=== PATIENT | male | born 1975 | race Hispanic/Latino ===

== ENCOUNTER 2019-12-28 13:13 | Emergency (ER) | payer SELFPAY ==
[2019-12-28 13:38] LABS: Absolute Lymphocytes (CBC) 0.5 K/uL (0.7-4.9); Basophils % 0.7 % (0-1.3); Hematocrit 41.1 % (39.6-49.0); Lymphocytes % 6.5 % (15.3-44.8); MPV 7.7 fL (7.6-11.3); RBC Red Blood Cell Count 4.62 M/uL (4.33-5.43)
[2019-12-28 13:54] LABS: Protime INR 0.9
[2019-12-28 14:00] LABS: ALT/SGPT 27 U/L (12-78); AST/SGOT 21 U/L (15-37); Albumin 3.9 g/dL (3.4-5.0); Alkaline Phosphatase 61 U/L (45-117); BUN Blood Urea Nitrogen 9 mg/dL (7-18); Bicarbonate 25 mmol/L (21-32); Bilirubin Direct < 0.1 mg/dL (0-0.2); Bilirubin Total 0.2 mg/dL (0.2-1.0); Glucose Level 117 mg/dL (74-106); Protein, Total 7.6 g/dL (6.4-8.2); Sodium Level 140 mmol/L (136-145)
[2019-12-28 14:48] LABS: Barbiturates NEGATIVE (NEGATIVE); Benzodiazepines NEGATIVE (NEGATIVE); Cocaine POSITIVE (NEGATIVE); METHAMPHETAM NEGATIVE (NEGATIVE); Methadone NEGATIVE (NEGATIVE); Opiates NEGATIVE (NEGATIVE); Phencyclidine NEGATIVE (NEGATIVE); THC Cannibis POSITIVE (NEGATIVE)
--- NOTE | 2019-12-28 15:37 | ER ---
Nurse's Notes [facility] Name: Marco Lott Age: 44 yrs Sex: Male : 1975 Arrival Date: 12/28/2019 Time: 13:15 Bed 8 Private MD: Diagnosis: Epilepsy and recurrent seizures;Cocaine abuse Presentation: 12/27 13:16 Chief complaint: EMS states: WITNESSED SEIZURE. Coronavirus screen: Proceed with normal bp triage. Ebola Screen: No symptoms or risks identified at this time. Initial Sepsis Screen: Does the patient meet any 2 criteria? No. Patient's initial sepsis screen is negative. Does the patient have a suspected source of infection? No. Patient's initial sepsis screen is negative. Risk Assessment: Do you want to hurt yourself or someone else? Patient reports no desire to harm self or others. Onset of symptoms is unknown. Care prior to arrival: IV initiated. 20 GA, in the right wrist. 13:16 Method Of Arrival: EMS: [facility] bp 13:16 Acuity: ADARSH 3 bp Triage Assessment: 13:17 General: Appears in no apparent distress. comfortable, Behavior is cooperative, bp appropriate for age, anxious. Pain: Denies pain. EENT: No deficits noted. Neuro: Level of Consciousness is awake, alert, obeys commands, Oriented to person, place, time, situation, Appropriate for age. Cardiovascular: No deficits noted. Respiratory: No deficits noted. GI: No signs and/or symptoms were reported involving the gastrointestinal system. : No signs and/or symptoms were reported regarding the genitourinary system. Derm: No deficits noted. Musculoskeletal: No deficits noted. Historical: - Allergies: 13:17 No Known Allergies; bp - Home Meds: 13:17 None [Active]; bp - PMHx: 13:17 Seizures; Hypertension; bp - Immunization history:: Adult Immunizations unknown. - Social history:: Smoking status: unknown. Screenin:19 Abuse screen: Denies threats or abuse. Denies injuries from another. Nutritional bp screening: No deficits noted. Tuberculosis screening: No symptoms or risk factors identified. Fall Risk None identified. Assessment: 13:17 General: SEE TRIAGE NOTE. bp 16:55 Reassessment: Patient appears in no apparent distress at this time. Patient and/or rb1 family updated on plan of care and expected duration. Pain level reassessed. Patient is alert, oriented x 3, equal unlabored respirations, skin warm/dry/pink. Vital Signs: 13:16 BP 140 / 89; Pulse 77; Resp 17; Temp 98; Pulse Ox 100% ; bp 14:15 BP 148 / 87; Pulse 77; Resp 14; Pulse Ox 100% ; rb1 16:40 BP 129 / 79; Pulse 79; Resp 14; Pulse Ox 98% ; rb1 ED Course: 13:15 Patient arrived in ED. em1 13:16 Donny Doherty, RN is Primary Nurse. bp 13:17 Triage completed. bp 13:17 Arm band placed on. bp 13:18 Daniel Mishra PA is PHCP. jmm 13:18 Catrachito Palacio MD is Attending Physician. jmm 13:19 Patient has correct armband on for positive identification. Bed in low position. Call bp light in reach. Side rails up X2. Seizure precautions initiated. 13:19 Maintain EMS IV. Dressing intact. Good blood return noted. Site clean \T\ dry. Gauge \T\ bp site: 20 GAUGE RIGHT WRIST. 15:35 Damion Yu MD is Referral Physician. [facility] 17:01 No provider procedures requiring assistance completed. IV discontinued, intact, rb1 bleeding controlled, No redness/swelling at site. Pressure dressing applied. Administered Medications: No medications were administered Outcome: 15:36 Discharge ordered by . [facility] 17:01 Discharged to home via wheelchair, with family. rb1 17:01 Condition: stable 17:01 Discharge instructions given to patient, Instructed on discharge instructions, follow up and referral plans. Demonstrated understanding of instructions, follow-up care, Prescriptions given X none 17:03 Patient left the ED. rb1 Signatures: Daniel Mishra PA PA jmm Martinez, Eric em1 Maria Eugenia Becker, RN RN rb1 Donny Doherty, RN RN bp
--- NOTE | 2019-12-28 15:37 | EDPHYS ---
Physician Documentation [facility] Name: Marco Lott Age: 44 yrs Sex: Male : 1975 Arrival Date: 12/28/2019 Time: 13:15 Bed 8 Private MD: ED Physician Catrachito Palacio HPI: 12/27 15:31 This 44 yrs old Male presents to ER via EMS with complaints of seizure. jmm 15:31 Character of seizure(s): Loss of consciousness: the patient did not lose consciousness, jmm Motor activity: generalized. Seizure onset: just prior to arrival. Seizure Hx: Last seizure: The patient's last seizure was approximately 1 week(s) ago. Associated injury: The patient did not suffer any apparent associated injury. This is a 44 year old male with a history of epilepsy, htn that presents to the ED after a witnessed generalized tonic colonic seizure. . Historical: - Allergies: 13:17 No Known Allergies; bp - Home Meds: 13:17 None [Active]; bp - PMHx: 13:17 Seizures; Hypertension; bp - Immunization history:: Adult Immunizations unknown. - Social history:: Smoking status: unknown. ROS: 15:31 Constitutional: Negative for fever, chills, and weight loss, Cardiovascular: Negative jmm for chest pain, palpitations, and edema, Respiratory: Negative for shortness of breath, cough, wheezing, and pleuritic chest pain, Abdomen/GI: Negative for abdominal pain, nausea, vomiting, diarrhea, and constipation. 15:31 Neuro: Positive for seizure activity. 15:31 All other systems are negative. Exam: 15:31 Constitutional: This is a well developed, well nourished patient who is awake, alert, jmm and in no acute distress. Head/Face: atraumatic. Eyes: EOMI, no conjunctival erythema appreciated ENT: Moist Mucus Membranes Neck: Trachea midline, Supple Chest/axilla: Normal chest wall appearance and motion. Cardiovascular: Regular rate and rhythm. No edema appreciated Respiratory: Normal respirations, no respiratory distress appreciated Abdomen/GI: Non distended, soft Back: Normal ROM Skin: General appearance color normal MS/ Extremity: Moves all extremities, no obvious deformities appreciated, no edema noted to the lower extremities Neuro: Awake and alert, normal gait Psych: Behavior is normal, Mood is normal, Patient is cooperative and pleasant Vital Signs: 13:16 BP 140 / 89; Pulse 77; Resp 17; Temp 98; Pulse Ox 100% ; bp 14:15 BP 148 / 87; Pulse 77; Resp 14; Pulse Ox 100% ; rb1 16:40 BP 129 / 79; Pulse 79; Resp 14; Pulse Ox 98% ; rb1 MDM: 13:28 Patient medically screened. [facility] 15:32 Data reviewed: vital signs, nurses notes. Counseling: I had a detailed discussion with [facility] the patient and/or guardian regarding: the historical points, exam findings, and any diagnostic results supporting the discharge/admit diagnosis, lab results, the need for outpatient follow up, to return to the emergency department if symptoms worsen or persist or if there are any questions or concerns that arise at home. ED course: I discussed labs with patient along with the need to discontinue cocaine use. Patient advised to follow up with neuro for reevaluation. Patient understood and agrees with the plan of care. . 12/27 13:18 Order name: Acetaminophen; Complete Time: 14:16 [facility] 12/27 13:18 Order name: Basic Metabolic Panel; Complete Time: 14:16 [facility] 12/27 13:18 Order name: CBC with Diff [facility] 12/27 13:18 Order name: ETOH Level; Complete Time: 14:16 [facility] 12/27 13:18 Order name: Hepatic Function; Complete Time: 14:16 [facility] 12/27 13:18 Order name: PT-INR; Complete Time: 14:16 [facility] 12/27 13:18 Order name: Ptt, Activated; Complete Time: 14:16 [facility] 12/27 13:18 Order name: Salicylate; Complete Time: 14:16 [facility] 12/27 13:18 Order name: Urine Drug Screen; Complete Time: 14:49 [facility] 12/27 13:18 Order name: EKG; Complete Time: 13:19 [facility] 12/27 13:18 Order name: EKG - Nurse/Tech; Complete Time: 13:38 [facility] 12/27 13:18 Order name: IV Saline Lock; Complete Time: 13:30 [facility] 12/27 13:18 Order name: Labs collected and sent; Complete Time: 13:30 [facility] 12/27 14:44 Order name: Urine Dipstick--Ancillary (enter results); Complete Time: 15:51 [facility] 12/27 13:18 Order name: Urine Dipstick-Ancillary (obtain specimen); Complete Time: 14:42 [facility] Administered Medications: No medications were administered Disposition: 17:07 Co-signature as Attending Physician, Catrachito Palacio MD I agree with the assessment and kdr plan of care. Disposition: 12/28/19 15:36 Discharged to Home. Impression: Epilepsy and recurrent seizures, Cocaine abuse. - Condition is Stable. - Discharge Instructions: Stimulant Use Disorder-Cocaine, Seizure, Adult. - Medication Reconciliation Form, Thank You Letter, Antibiotic Education, Prescription Opioid Use form. - Follow up: Damion Yu MD; When: 2 - 3 days; Reason: Recheck today's complaints, Continuance of care, Re-evaluation by your physician. Signatures: Dispatcher [employer] EDMS Catrachito Palacio MD MD [facility] Daniel Mishra PA PA jm Maria Eugenia Becker, RN RN rb1 Donny Doherty RN RN bp Corrections: (The following items were deleted from the chart) 15:36 15:36 12/28/2019 15:36 Discharged to Home. Impression: Epilepsy and recurrent seizures. [facility] Condition is Stable. Forms are Medication Reconciliation Form, Thank You Letter, Antibiotic Education, Prescription Opioid Use. Follow up: Damion Yu; When: 2 - 3 days; Reason: Recheck today's complaints, Continuance of care, Re-evaluation by your physician. [facility] 17:03 15:36 12/28/2019 15:36 Discharged to Home. Impression: Epilepsy and recurrent seizures; rb1 Cocaine abuse. Condition is Stable. Discharge Instructions: Seizure, Adult. Forms are Medication Reconciliation Form, Thank You Letter, Antibiotic Education, Prescription Opioid Use. Follow up: Damion Yu; When: 2 - 3 days; Reason: Recheck today's complaints, Continuance of care, Re-evaluation by your physician. [facility]
[2019-12-28 15:49] LABS: Urine Blood TRACE (NEG); Urine Glucose NEGATIVE (NEG); Urine Protein 2+ (NEG); Urine Specific Gravity >1.030 (1.005-1.030)
[2019-12-28 17:10] VITALS: TEMP 98
[2019-12-28 17:13] VITALS: BP 129/79; O2SAT 98
[2019-12-28 17:46] LABS: Blood Morphology Comment NOT SEEN (NOT SEEN); Platelet Estimate ADEQ; Urine White Blood Cell Casts OK
--- NOTE | 2019-12-29 11:53 | EKG ---
Test Date: 2019-12-28 Test Time: 13:47:57 [facility] Operator: AYANA MEASUREMENT RESULTS: Intervals: Rate: 75 SD: 136 QRSD: 86 QT: 372 QTc: 415 [place]: P: 61 SD: 136 QRS: 62 T: 64 INTERPRETIVE STATEMENTS: Normal sinus rhythm Normal ECG No previous ECG available for comparison Electronically Signed On 12-29-19 11:50:26 CDT by Isaiah Napoles
== END 2019-12-28 17:03 | disposition home or self-care (01) ==
LOC: ER 13:13
DX: G40.909 Epilepsy, unspecified, not intractable, without status epilepticus (principal); F14.10 Cocaine abuse, uncomplicated
CPT/HCPCS: 36415; 80048; 80076; 80307; 80320; 80329; 81003; 85025; 85610; 85730; 93005; 99283